=== PATIENT | female | born 1980 | race Caucasian/White ===

== ENCOUNTER → 2024-07-03 13:03 | Emergency (ER) | payer OTHER, SELFPAY ==
[2024-07-03 13:11] VITALS: BP 142/95
[2024-07-03 13:12] VITALS: BP 142/95
--- NOTE | 2024-07-03 13:34 | ED.GENMED ---
History of Present Illness
General
Chief Complaint: Alcohol Problem
Source: patient
Time Seen by Provider: 07/03/24 13:13
History of Present Illness
History of Present Illness:
This patient is a 44-year-old female presents emergency department with what she suspects is early alcohol withdrawal. She drinks approximately 2 bottles of wine per day on average, always in the evening. Her last drink was last night. She
describes feeling very dehydrated' dizzy' described as lightheadedness associated with fatigue, anxiety, and feeling like she is floating associated with restlessness and mild nausea and headache. She denies abdominal pain or vomiting, bleeding,
chest pain, shortness of breath, or other complaints.
Past History
Past History
ED Past Medical History: Psychiatric and Other (Eating disorder)
ED Past Surgical History: Orthopedic and Other (Sinus surgery)
Social History
Tobacco: Non-smoker
Alcohol: Daily
Drug: None
Personal: Single
Living: alone
Employment: Employed
Phy Exam
Physical Exam
Physical Exam:
GENERAL: Alert , appears anxious, extremely thin
EYE: pupils equal and reactive
NECK: Supple, no significant adenopathy.
ENT: o/p clr, mm dry
CARDIAC: Regular rate and rhythm, tachycardic.
LUNGS: Clear breath sounds bilaterally, no acute respiratory distress, no wheezes/rales/rhonchi
ABDOMEN: Soft, without focal tenderness, no r/g, no cvat
NEUROLOGICAL: Alert and oriented, no focal neuro deficits
SKIN: Warm and dry, skin intact.
MUSCULOSKELETAL: No edema, well perfused.
PSYCH: Flat affect with associated anxiety.
Scores
Withdrawal Assessment of Alcohol
Withdrawal Assessment Completed?: Yes
Nausea and Vomiting: Mild nausea with no vomiting
Tactile Disturbances: None
Tremor: No tremor
Auditory Disturbances: Not present
Paroxysmal Sweats: No sweat visible
Visual Disturbances: Not present
Anxiety: Moderately anxious, or guarded, so anxiety is inferred
Headache, Fullness in Head: Very mild
Agitation: Normal activity
Orientation and clouding of sensorium: Oriented and can do serial additions
Total CIWA Score: 6
Alcohol Withdrawal Medication Recommendation: Equal to MSAS Score 0-4. Monitor & re-assess q2hrs, NO MEDICATION NEEDED
Course
Orders/Labs/Results
Orders:
Orders
07/03/24 13:18
Electrocardiogram (*1) Urgent
Reason for Study: Tachycardia
EKG- Treatment ONCE
07/03/24 13:22
Complete Blood Count/With Diff Urgent
Test Result ONCE
07/03/24 13:32
Lorazepam [Ativan] 1 mg IV NOW STA
Thiamine Injection 200 mg IV NOW STA
07/03/24 13:43
FOLic ACID [Folvite] 1 mg 0.9% Sodium Chloride 50 ml [Nss] 50 ml IV NOW
07/03/24 13:45
0.9% Sodium Chloride 1000 ml [Nss] 1,000 ml IV 1,000 mls/hr
07/03/24 14:01
Alcohol Urgent
Comprehensive Metabolic Panel Urgent
HCG, Serum Qualitative Screen Urgent
Magnesium Urgent
Phosphorus Urgent
07/03/24 15:10
Urinalysis Reflex To Culture Urgent
Date Specimen was Collected: 07/03/24
Time Specimen was Collected: 15:09
Abnormal Lab Results
07/03/24 07/03/24
13:22 14:01
RBC 3.46 L 10^6/uL
(4.20-5.40)
Hgb 11.1 L g/dL
(12.0-16.0)
Hct 32.6 L %
(37.0-47.0)
MCH 32.1 H pg
(27.0-31.0)
Absolute Lymphs (auto) 1.0 L 10^3/uL
(1.2-3.4)
Neutrophils % 81.3 H %
(42.2-75.2)
Lymphocytes % 13.2 L %
(20.5-51.1)
Potassium 3.4 L mmol/L
(3.5-5.1)
Glucose 108 H mg/dl
(70-99)
Magnesium 1.5 L mg/dl
(1.6-2.3)
AST 43 H U/L
(14-36)
Total Protein 6.2 L g/dl
(6.3-8.2)
07/03/24 13:22
07/03/24 14:01
Vital Signs
Initial and Last Documented VS:
Initial Vital Signs
Pulse Resp BP Pulse Ox
112 14 142/95 100
07/03/24 13:11 07/03/24 13:11 07/03/24 13:11 07/03/24 13:11
Last Documented Vital Signs
Temp Pulse Resp BP Pulse Ox
97.5 F 107 12 135/91 100
07/03/24 13:12 07/03/24 14:30 07/03/24 14:30 07/03/24 14:00 07/03/24 14:30
*Critical Care Note
Total Time (30-74mins, 75-104mins- exclusive of procedures): Not Applicable
Update Note
Update Note:
Patient presents to the Emergency Department with __lightheadedness, dehydrated, etc.
Number and Complexity of Problems Addressed at the Encounter
� Chronic conditions affecting care:
� Acute Exacerbation and/or Progression of Chronic Illness:
� Differential Diagnosis includes: But not limited to AKA, alcohol withdrawal, etc.
Amount and/or Complexity of Data to be Reviewed and Analyzed
� I performed an independent evaluation of and my interpretation is:
EKG:read by me, nsr, nl rate, nl axis, no acute ischemia
CT:
Xrays:
Laboratory Studies: Nonspecific anemia, very mild hypopotassium hypomag
Other:
� Review of other/old records reveals:
� Clinical information was obtained by an independent historian:
� Prescriptions/Medications Considered but not given:
� Further testing considered but not performed:
Risk of Complications and/or Morbidity or Mortality of Patient Management
� Social determinants of health affecting care:
� Discussion with other providers (PCP, Hospitalists, Consultants, etc): Patient is agreeable to a bCARES consult, I spoke with Galen who will text the on-call be CARES person to see patient bedside.
� Escalation of care including admission/observation vs risk of discharge considered: 3:51 PM patient given resources through OB cares. Although her heart rate remains slightly elevated, patient denies any other symptoms except
feeling tired. She is eager to go home and will not consider staying in the ER/hospital for further monitoring. Discussed with her importance of not combining benzodiazepine taper with alcohol which she understands and commits to. Also discussed
discussed with her importance of follow-up and reasons to return to the ER. Patient denies SI or HI
ED Attending Note
-
Portions of this chart may have been created with voice recognition software.� Occasional wrong word or��sound alike� substitutions may have occurred due to the inherent limitations of voice recognition software.
Discharge Plan
Departure
Patient Disposition: Home (Routine Discharge)
Date of Disposition: 07/03/24
Time of Disposition: 15:47
Patient with high blood pressure during this ER visit?: Yes
Condition: Good
Discharge Problem:
Alcohol use disorder
Instructions: Alcohol Use Disorder (DC), BLOOD PRESSURE
Prescriptions:
New
chlordiazepoxide HCl 25 mg capsule
50 mg PO .TAPER 3 Days Qty: 12 0RF
Rx Instructions:
TAKE 50MG THREE TIMES A DAY X1 D
THEN TAKE 50MG TWICE A DAY X1 D
THEN TAKE 50MG ONCE A DAY X1 D
No Action
escitalopram oxalate [Lexapro] 10 mg Tablet
10 mg PO DAILY
Referrals:
UNKNOWN - PT NOT,INTERVIEWE [Family Provider] -
Activity Restrictions/Additional Instructions:
IF YOU DEVELOP VOMITING, FEVER, CHEST PAIN, SHORTNESS OF BREATH, TREMORS, GET WORSE, DO NOT GET BETTER, OR OTHER WORRISOME SIGNS, PLEASE RETURN TO THE EMERGENCY DEPARTMENT IMMEDIATELY. YOU HAVE BEEN GIVEN RESOURCES FOR RECOVERY. PLEASE REACH OUT
FOR HELP, WE WANT TO SUPPORT YOU. DO NOT DRINK ALCOHOL WHILE TAKING THIS PRESCRIPTION MEDICATION.
Interventions
Interventions:
*Risk Screen - Suicide Last Done: 07/03/24 13:12
*General Assessment Last Done: 07/03/24 13:12
*Neglect/Abuse Screening Last Done: 07/03/24 13:12
*ED COVID-19 Vaccine History Last Done: 07/03/24 13:18
Discharge Date and Time
Print Language: [place]ORE[place]
[2024-07-03 13:45] LABS: % Basophils 0.4 % (0-2); % Immature Granulocytes 0.5 % (0-0.5); % Lymphocytes 13.2 % (20.5-51.1); % Monocytes 4.6 % (1.7-9.3); % Neutrophils 81.3 % (42.2-75.2); Absolute Monocytes 0.4 10^3/uL (0.1-0.6); Absolute Neutrophils 6.2 10^3/uL (1.4-6.5); Hematocrit 32.6 % (37.0-47.0); Hemoglobin 11.1 g/dL (12.0-16.0); Mean Corpuscular Hgb 32.1 pg (27.0-31.0); Mean Corpuscular Volume 94.2 fL (81.0-99.0); Mean Platelet Volume 9.5 fL (7.4-10.4); Nucleated Red Blood Cells % 0 %; Platelet Count 294 10^3/uL (130-400); Red Blood Cell Count 3.46 10^6/uL (4.20-5.40); Red Cell Dist. Width 12.6 % (11.5-14.5); White Blood Cell Count 7.6 10^3/uL (4.8-10.8)
[2024-07-03] MEDS: NSS 1000 IV (13:48)
[2024-07-03] MEDS: ATIVAN 1 MG IV (13:48)
[2024-07-03] MEDS: THIAMINE INJECTION 200 MG IV (13:49)
[2024-07-03 14:00] VITALS: BP 135/91
[2024-07-03 14:24] LABS: HCG, Serum Qualitative Screen Negative
[2024-07-03 14:29] LABS: ALT (SGPT) 22 U/L (0-35); AST (SGOT) 43 U/L (14-36); Alkaline Phosphatase 62 U/L (38-126); Blood Urea Nitrogen 8 mg/dl (7-17); Calcium 8.6 mg/dl (8.4-10.2); Carbon Dioxide 23 mmol/L (22-30); Chloride 98 mmol/L (98-107); Estimated Creatinine Clearance 100 ml/min; Glucose 108 mg/dl (70-99); Magnesium 1.5 mg/dl (1.6-2.3); Phosphorus 2.9 mg/dl (2.5-4.5); Potassium 3.4 mmol/L (3.5-5.1); Sodium 136 mmol/L (135-145); Total Bilirubin 0.4 mg/dl (0.2-1.3); Total Protein 6.2 g/dl (6.3-8.2); eGFR > 60.00
[2024-07-03 14:32] LABS: Alcohol None Detected
[2024-07-03 15:05] VITALS: BP 144/97
[2024-07-03] MEDS: FOLVITE 50.2 MG IV (15:06)
[2024-07-03 15:30] LABS: Urine Albumin Negative (Neg - Trace); Urine Bilirubin Negative (Negative); Urine Character Clear (Clear); Urine Color Yellow; Urine Glucose Negative (Negative); Urine Ketone 3+ (Negative); Urine Leukocyte Negative (Negative); Urine Nitrite Negative (Negative); Urine Occult Blood 2+ (Negative); Urine Urobilinogen Negative (Neg - 1+); Urine pH 6.5 (5.0-9.0)
[2024-07-03 16:55] LABS: Urine Red Blood Cell 16-20 /HPF (0-2); Urine White Cell 0-2 /HPF (0-5)
== END | disposition home or self-care (01) ==
LOC: EMR 13:03
PROVIDERS: EMERGENCY PHYSICIAN Emergency Medicine
DX: F10.10 Alcohol abuse, uncomplicated (principal)
CPT/HCPCS: 99283; 80053; 81003; 81015; 82077; 83735; 84100; 84703; 85025; 93005